=== PATIENT | female | born 1995 | race Caucasian/White ===

== ENCOUNTER 2017-06-12 23:51 | Emergency (ER) | payer OTHER ==
[2017-06-13 00:03] VITALS: BP 126/77; PULSE 88; TEMP 97.9; BMI 36.9
[2017-06-13] MEDS ORDERED: CIPROFLOXACIN 500 MG TABLET (RESTRICTED TO ID) PO ONE (00:10)
[2017-06-13] MEDS ORDERED: LOPERAMIDE HCL 2 MG CAPSULE PO ONE (00:10)
--- NOTE | 2017-06-13 00:18 | PDOC ---
History of Present Illness - General Chief Complaint: Pain, Acute Stated Complaint: ABD PAIN/DIARRHEA - History of Present Illness Initial Comments: 06/13/17 02:31 22y f, no pmh, presents with 2 weeks of watery diarrhea, 6-7 episodes per day, crampy abd pain. No travel. Recent "flu" (no abx). No bad food. Tolerating po but decreased appetite, no n/v No rash, no fever pmh: denies fhx: non contrib ros: reviewed and otherwise negative o/e: NAD no diaphoresis non-icteric rrr cta abd nt no cvat no edema a/p persistent diarrhea trial of abx imodium analgesia Past History - Past Medical History Allergies/Adverse Reactions: Allergies Allergy/AdvReac Type Severity Reaction Status Date / Time No Known Allergies Allergy Verified 02/03/15 12:07 Home Medications: Ambulatory Orders Ciprofloxacin 0.3% Eye Drops [Ciloxan 0.3% Eye Drops --] 1 drop OS Q4HWA #1 bottle 02/03/15 Oxycodone HCl/Acetaminophen [Percocet 5/325 -] 1 tab PO Q6H PRN #6 tablet Ciprofloxacin [Cipro (Restricted To Id)] 500 mg PO Q12H #6 tablet 06/13/17 Loperamide HCl [Imodium -] 2 mg PO Q8H PRN #14 capsule 06/13/17 Naproxen 500 mg PO BID PRN #12 tablet 06/13/17 COPD: No - Surgical History Abdominal Surgery: Yes (GASTRIC SLEEVE) - Suicide/Smoking/Psychosocial Hx Smoking History: Never smoked Number of Cigarettes Smoked Daily: 3 Information on smoking cessation initiated: Yes 'Breaking Loose' booklet given: 02/03/15 Hx Alcohol Use: Yes (social) Drug/Substance Use Hx: No Substance Use Type: None *Physical Exam - Vital Signs Last Vital Signs Temp Pulse Resp BP Pulse Ox 97.9 F 88 18 126/77 100 06/12/17 23:53 06/12/17 23:53 06/12/17 23:53 06/12/17 23:53 06/12/17 23:53 *DC/Admit/Observation/Transfer Diagnosis at time of Disposition: Diarrhea Qualifiers: Diarrhea type: infectious Qualified Code(s): A09 - Infectious gastroenteritis and colitis, unspecified - Discharge Dispostion Disposition: HOME Condition at time of disposition: Stable - Prescriptions Prescriptions: Ciprofloxacin [Cipro (Restricted To Id)] 500 mg PO Q12H #6 tablet Loperamide HCl [Imodium -] 2 mg PO Q8H PRN #14 capsule PRN Reason: Diarrhea Naproxen 500 mg PO BID PRN #12 tablet PRN Reason: Pain - Referrals - Patient Instructions Printed Discharge Instructions: Diarrhea - Post Discharge Activity
== END 2017-06-13 00:25 | disposition home or self-care (01) ==
LOC: FER 23:51
DX: A09 Infectious gastroenteritis and colitis, unspecified (principal); Z98.84 Bariatric surgery status
CPT/HCPCS: 99282-25

== ENCOUNTER 2018-03-21 22:11 | Emergency (ER) | payer OTHER ==
--- NOTE | 2018-03-21 22:18 | PDOC ---
History of Present Illness - General Chief Complaint: Vaginal Sxs Stated Complaint: VAGINAL ITCHING,BURNING DISCHARGE Time Seen by Provider: 03/21/18 22:17 - History of Present Illness Initial Comments: This 23-year-old woman presents with a few day history of progressive whitish/ greenish vaginal discharge (not malodorous) with vulvar pruritus and occasional blood on tissue after urination. She denies dysuria, urinary frequency/ urgency. The patient had seen her electrical contractor 10 days ago after the development of a new vaginal discharge. She was started on metronidazole oral tablets as well as metronidazole gel. Discharge originally improved and then she noted current symptoms developing a few days ago. Patient has had a history of vaginal candidiasis in the past. No history of chlamydial/ gonorrheal STD. She notes normal menstrual cycles. Past History - Past Medical History Allergies/Adverse Reactions: Allergies Allergy/AdvReac Type Severity Reaction Status Date / Time No Known Allergies Allergy Verified 03/21/18 22:13 Home Medications: Ambulatory Orders Fluconazole [Diflucan] 150 mg PO ONCE #2 tablet 03/21/18 Metronidazole 500 mg PO DAILY 03/21/18 metroNIDAZOLE 1% CREAM [Metrocream 1% Cream -] 1 applic TP BID 03/21/18 COPD: No - Surgical History Abdominal Surgery: Yes (GASTRIC SLEEVE) - Suicide/Smoking/Psychosocial Hx Smoking History: Never smoked Number of Cigarettes Smoked Daily: 3 'Breaking Loose' booklet given: 02/03/15 Hx Alcohol Use: Yes (social) Drug/Substance Use Hx: No Substance Use Type: None Review of Systems - Review of Systems Able to Perform ROS?: Yes Comments:: 12 point review of systems is negative except for what is noted in the history of present illness *Physical Exam - Physical Exam Comments: GENERAL: Adult female, alert and oriented 3, in no acute distress ABDOMEN:.normal bowel sounds No guarding,tenderness or rebound.No masses No distention. PELVIC: Erythematous external genitalia without edema or masses Vaginal vault erythematous and mildly edematous with copious, thick white discharge on rico Cervix without lesions; minimal CMT; no adnexal tenderness/masses EXTREMITIES: Normal range of motion, no edema. No clubbing or cyanosis. No erythema, or tenderness. NEUROLOGICAL: Cranial nerves II through XII grossly intact. Normal speech. No focal neurological deficits. MUSCULOSKELETAL: Back non-tender to palpation, no CVA tenderness SKIN: Warm, Dry, normal turgor, no rashes or lesions noted. Progress Note - Progress Note Progress Note: Urinalysis shows no indication of abnormality on dipstick; PGU negative Chlamydial/GC endocervical amplification sent. Clinical presentation most consistent with vaginal candidiasis. Patient will be treated with Diflucan. Prescription for 150 mg tablet (#2) transmitted to pharmacy: Patient should take one tablet when she received the prescription; she should repeat the dose in 24 hours if she has persistent symptoms. Patient has been advised to follow-up with her electrical contractor within the next 3- 4 days. She will return turn to the emergency room if she has severe abdominal pain/fever/chills *DC/Admit/Observation/Transfer Diagnosis at time of Disposition: Vaginal candidiasis - Discharge Dispostion Disposition: HOME Condition at time of disposition: Stable - Prescriptions Prescriptions: Fluconazole [Diflucan] 150 mg PO ONCE #2 tablet - Referrals - Patient Instructions Printed Discharge Instructions: DI for Vaginal Yeast Infection Additional Instructions: Diflucan 150 mg tablet once; repeat dose in 24 hours if symptoms persist Drink plenty of fluids Follow-up with the electrical contractor within the next 5 days Return to ER if you have severe pain/vomiting/bleeding - Post Discharge Activity
[2018-03-21 22:20] VITALS: BP 137/91; PULSE 75; TEMP 98.5; BMI 38.4
[2018-03-21 22:33] LABS: URINE APPEARANCE Clear; URINE BILIRUBIN Negative (NEGATIVE); URINE COLOR Yellow; URINE GLUCOSE (UA) Negative (NEGATIVE); URINE KETONE Trace (NEGATIVE); URINE LEUK ESTERASE Negative (NEGATIVE); URINE NITRITE Negative (NEGATIVE); URINE PROTEIN Negative (NEGATIVE); URINE UROBILINOGEN 0.2 (0.2-1.0)
[2018-03-21 22:39] LABS: HCG,QUALITATIVE URINE Negative
== END 2018-03-21 23:41 | disposition home or self-care (01) ==
LOC: FER 22:11
DX: B37.3 Candidiasis of vulva and vagina (principal)
CPT/HCPCS: 36415; 81003; 84703; 87491; 87591; 99281-25